=== PATIENT | female | born 1970 | race Caucasian/White ===

== ENCOUNTER 2018-04-10 00:38 | Emergency (ER) | payer OTHER ==
[2018-04-10] MEDS ORDERED: ONDANSETRON 4 MG/2 ML VIAL IVP ONE (00:59)
[2018-04-10] MEDS ORDERED: NS 1,000 ML IV ONE ×2 (00:59→01:06)
--- NOTE | 2018-04-10 00:59 | EDPHY ---
H & P Stated Complaint: diarrhea, vomiting abd pain Time Seen by Provider: 04/10/18 00:59 HPI/ROS: HPI CHIEF COMPLAINT: Nausea, vomiting, diarrhea, recent travel from [place]. HISTORY OF PRESENT ILLNESS: This is a 47-year-old female she is otherwise healthy, does have thyroid disease, presents emergency room nausea vomiting and diarrhea. She was recently in [place]. She denies any ingestion of alcohol or tap water [place]. On Tuesday she developed diarrhea watery. Nonbloody. It got better but then again returned Tuesday and Tuesday night was the worst night with ongoing watery diarrhea. No fever, no significant abdominal pain no bloody stool. Had vomiting as well. She feels dehydrated came to the emergency room. Past Medical History: No medical history except for thyroid disease Past Surgical History: No recent surgical history Social History: He denies drugs alcohol tobacco. Family History: Noncontributory ROS REVIEW OF SYSTEMS: 10 Systems were reviewed and negative with the exception of the elements mentioned in the history of present illness. Exam Constitutional appears well nontoxic no acute distress triage nursing summary reviewed, vital signs reviewed, awake/alert. Eyes normal conjunctivae and sclera, EOMI, PERRLA. HENT normal inspection, atraumatic, moist mucus membranes, no epistaxis, neck supple/ no meningismus, no raccoon eyes. Respiratory clear to auscultation bilaterally, normal breath sounds, no respiratory distress, no wheezing. Cardiovascular rate normal, regular rhythm, no murmur, no edema, distal pulses normal. Gastrointestinal soft, non-tender, no rebound, no guarding, normal bowel sounds, no distension, no pulsatile mass. Genitourinary no CVA tenderness. Musculoskeletal no midline vertebral tenderness, full range of motion, no calf swelling, no tenderness of extremities, no meningismus, good pulses, neurovascularly intact. Skin pink, warm, & dry, no rash, skin atraumatic. Neurologic awake, alert and oriented x 3, AAOx3, moves all 4 extremities equally, motor intact, sensory intact, CN II-XII intact, normal cerebellar, normal vision, normal speech. Psychiatric normal mood/affect. Heme/Lymph/Immune no lymphadenopathy. Differential diagnosis includes but is not limited to and in no particular order : Traveler's diarrhea,Bowel obstruction, appendicitis, gallbladder disease, diverticulitis, colitis, enteritis, perforated viscus, gastritis, GERD, esophagitis, urinary tract infection, pyelonephritis, kidney stones Medical Decision Making: Plan for this patient IV establishment with IV fluid bolus, Zofran for nausea, basic blood work, GI studies and re-evaluate. Re-evaluation: 0352: Patient re-evaluated this time resting comfortably no acute distress feeling much better after IV fluids and nausea medicine. Re-examination her abdomen is soft. Nontender. She is not vomiting. She did p.o. Challenge well without vomiting No diarrhea here. Patient denies chest pain or shortness of breath, denies abdominal pain would like to go home. I do recommend bland diet tomorrow no spicy fatty greasy foods Take-home pack of Zofran Return if worse. She is comfortable this plan Source: Patient - Personal History LMP (Females 10-55): 1-7 Days Ago Current Tetanus Diphtheria and Acellular Pertussis (TDAP): Unsure - Medical/Surgical History Hx Asthma: No Hx Chronic Respiratory Disease: No Hx Diabetes: No Hx Cardiac Disease: No Hx Renal Disease: No Hx Cirrhosis: No Hx Alcoholism: No Hx HIV/AIDS: No Hx Splenectomy or Spleen Trauma: No Other PMH: TUMMY TUCK, POSSIBLE THYROID ISSUES - Social History Smoking Status: Never smoked Constitutional: Initial Vital Signs Temperature (C) 37.1 C 04/10/18 00:41 Heart Rate 80 04/10/18 00:41 Respiratory Rate 20 04/10/18 00:41 Blood Pressure 140/83 H 04/10/18 00:41 O2 Sat (%) 99 04/10/18 00:41 O2 Delivery Mode Room Air Allergies/Adverse Reactions: No Known Allergies Allergy (Verified 04/04/16 19:00) Home Medications: Medication Instructions Recorded Miscellaneous Medical Supply [NO 1 ea MISC AD 10/08/11 HOME MEDS] Medical Decision Making - Data Points Laboratory Results: Laboratory Results 04/10/18 01:05 04/10/18 01:05 04/10/18 04/10/18 04/10/18 01:05 01:05 01:05 WBC 3.78 10^3/uL L 10^3/uL (3.80-9.50) RBC 4.44 10^6/uL 10^6/uL (4.18-5.33) Hgb 13.6 g/dL g/dL (12.6-16.3) Hct 41.0 % % (38.0-47.0) MCV 92.3 fL fL (81.5-99.8) MCH 30.6 pg pg (27.9-34.1) MCHC 33.2 g/dL g/dL (32.4-36.7) RDW 13.0 % % (11.5-15.2) Plt Count 190 10^3/uL 10^3/uL (150-400) MPV 9.5 fL fL (8.7-11.7) Neut % (Auto) 75.8 % H % (39.3-74.2) Lymph % (Auto) 11.9 % L % (15.0-45.0) [place] % (Auto) 10.1 % % (4.5-13.0) Eos % (Auto) 1.6 % % (0.6-7.6) Baso % (Auto) 0.3 % % (0.3-1.7) Nucleat RBC Rel Count 0.0 % % (0.0-0.2) Absolute Neuts (auto) 2.87 10^3/uL 10^3/uL (1.70-6.50) Absolute Lymphs (auto) 0.45 10^3/uL L 10^3/uL (1.00-3.00) Absolute Monos (auto) 0.38 10^3/uL 10^3/uL (0.30-0.80) Absolute Eos (auto) 0.06 10^3/uL 10^3/uL (0.03-0.40) Absolute Basos (auto) 0.01 10^3/uL L 10^3/uL (0.02-0.10) Absolute Nucleated RBC 0.00 10^3/uL 10^3/uL (0-0.01) Immature Gran % 0.3 % % (0.0-1.1) Immature Gran # 0.01 10^3/uL 10^3/uL (0.00-0.10) RBC/WBC/PLT Morphology TNP Platelet Estimate TNP PT 13.5 SEC SEC (12.0-15.0) INR 1.01 (0.83-1.16) APTT 29.3 SEC SEC (23.0-38.0) Sodium 135 mEq/L mEq/L (135-145) Potassium 3.3 mEq/L L mEq/L (3.5-5.2) Chloride 104 mEq/L mEq/L (97-110) Carbon Dioxide 22 mEq/l mEq/l (22-31) Anion Gap 9 mEq/L mEq/L (6-14) BUN 7 mg/dL mg/dL (7-23) Creatinine 0.7 mg/dL mg/dL (0.6-1.0) Estimated GFR > 60 Glucose 104 mg/dL H mg/dL (70-100) Calcium 8.7 mg/dL mg/dL (8.5-10.4) Total Bilirubin 1.0 mg/dL mg/dL (0.1-1.4) Conjugated Bilirubin 0.1 mg/dL mg/dL (0.0-0.5) Unconjugated Bilirubin 0.9 mg/dL mg/dL (0.0-1.1) AST 39 IU/L IU/L (14-46) ALT 54 IU/L H IU/L (9-52) Alkaline Phosphatase 64 IU/L IU/L (38-126) Total Protein 7.2 g/dL g/dL (6.3-8.2) Albumin 4.0 g/dL g/dL (3.5-5.0) Lipase 109 IU/L IU/L (23-300) Medications Given: Discontinued Medications Sodium Chloride (Ns) 1,000 mls @ 0 mls/hr IV EDNOW ONE; Wide Open PRN Reason: Protocol Stop: 04/10/18 01:00 Last Admin: 04/10/18 01:05 Dose: 1,000 mls Sodium Chloride (Ns) 1,000 mls @ 0 mls/hr IV ONCE ONE PRN Reason: Wide Open Stop: 04/10/18 01:07 Last Admin: 04/10/18 01:14 Dose: 1,000 mls Ondansetron HCl (Zofran) 4 mg IVP EDNOW ONE Stop: 04/10/18 01:00 Last Admin: 04/10/18 01:06 Dose: 4 mg Departure - Departure Disposition: Home, Routine, Self-Care Clinical Impression: Vomiting, Diarrhea, Dehydration Condition: Good Instructions: Dehydration (ED), Gastroenteritis (ED), Acute Nausea and Vomiting (ED) Additional Instructions: 1. [place] diet for next 24-48 hours 2. No spicy fatty greasy foods 3. Return emergency room if worsening abdominal pain, fever, vomiting Referrals: NONE *PRIMARY CARE P,. [Primary Care Provider] - As per Instructions
[2018-04-10 01:21] LABS: PLATELET COUNT 190 10^3/uL (150-400)
[2018-04-10 01:29] LABS: INR 1.01 (0.83-1.16); PROTIME(PATIENT) 13.5 SEC (12.0-15.0)
[2018-04-10] MEDS ORDERED: ONDANSETRON 4MG PREPACK#2 BTL TAKEHOME ONE (03:53)
[2018-04-10 04:03] VITALS: BP 104/60
== END 2018-04-10 04:06 | disposition home or self-care (01) ==
DX: R11.2 Nausea with vomiting, unspecified (principal); R19.7 Diarrhea, unspecified; E86.9 Volume depletion, unspecified
CPT/HCPCS: 96374; J2405